=== PATIENT | female | born 1975 | race Asian ===

== ENCOUNTER 2018-09-05 11:35 | Emergency (ER) | payer BC ==
[~2018-09-05] VITALS: Ht 160 cm; Wt 52.2 kg
--- NOTE | 2018-09-05 12:17 | NUR ---
ZIGZAG APPLIQUER AND ELECTRODYNAMICIST AT BEDSIDE
--- NOTE | 2018-09-05 12:17 | NUR ---
VAGINAL SPOTTING, LOWER ABDOMINAL CRAMPING SINCE LATE LAST NIGHT. MISCARRIAGE AT 6 WEEKS, SEEN AT [facility] LAST FRIDAY. THIS WEEK WOULD HAVE BEEN WEEK 8. PT IS AOX4, AMBULATORY, RR EVEN AND UNLABORED, VSS. DENIES PAIN, SOB, DIZZINESS, WEAKNESS. NO ACUTE DISTRESS. CHANGED TO GOWN. READY FOR EVAL. Addendum: 09/05/18 at 1239 by MANUELAUWONO PT IS
[2018-09-05 12:31] LABS: BASOPHILS # (AUTO) 0.1 /CMM (0.0-0.2); BASOPHILS % (AUTO) 0.7 % (0.0-2.0); EOSINOPHILS % (AUTO) 1.5 % (0.0-6.0); HEMATOCRIT 41 % (33-45); HEMOGLOBIN 13.9 g/dL (11.5-14.8); LYMPHOCYTES # (AUTO) 1.5 /CMM (0.8-4.8); MEAN CORPUSCULAR HGB CONC 34 g/dl (31.0-36.0); MEAN CORPUSCULAR VOLUME 93 fL (82-100); MONOCYTES # (AUTO) 0.4 /CMM (0.1-1.30); MONOCYTES % (AUTO) 5.9 % (2.0-12.0); NEUTROPHILS # (AUTO) 5.1 /CMM (1.8-8.9); NEUTROPHILS % (AUTO) 70.9 % (43.0-81.0); PLATELET COUNT (AUTO) 295 /CMM (150-450); RED BLOOD CELL COUNT(AUTO) 4.37 MIL/uL (4.0-5.2); WHITE BLOOD COUNT (AUTO) 7.1 K/uL (4.3-11.0)
[2018-09-05 12:44] LABS: CALCIUM, SERUM 9.1 mg/dL (8.5-10.1); CREATININE 0.6 mg/dL (0.6-1.3); POTASSIUM 4.4 mmol/L (3.5-5.1)
[2018-09-05 13:02] LABS: APPEARANCE,URINE Clear (CLEAR); BILIRUBIN,URINE Negative (NEGATIVE); BLOOD, URINE Trace-intact Ery/uL (NEGATIVE); COLOR,URINE Yellow (YELLOW); KETONES,URINE 15 (NEGATIVE); LEUKOCYTE ESTERASE ,URINE Negative (NEGATIVE); NITRITE, URINE Negative (NEGATIVE); PROTEIN,URINE Negative (NEGATIVE); UGLUCOSE Negative (NEGATIVE); UROBILINOGEN,URINE 0.2 EU/dL (0.2)
[2018-09-05 13:09] LABS: BACTERIA,URINE Rare /HPF (None Seen); SQUAMOUS EPITHELIAL CELL,UR Few /HPF (None Seen); WBC,URINE NONE SEEN /HPF (0-3)
--- NOTE | 2018-09-05 13:38 | NUR ---
PT RESTING COMFORTABLY IN BED. NO COMPLAINTS AT THIS TIME. VSS.
--- NOTE | 2018-09-05 14:27 | NUR ---
WAITING FOR RHOGAM FROM LAB. PT NOTIFIED.
--- NOTE | 2018-09-05 15:15 | NUR ---
RHOGAM ADMINISTERED IM RIGHT DELTOID. PT TOLERATED WELL. Patient discharged to home in stable condition. Written and verbal after care instructions given. Patient verbalizes understanding of instruction.
[2018-09-05 15:28] VITALS: BP 138/72
== END 2018-09-05 15:15 | disposition home or self-care (01) ==
LOC: ER 11:38
DX: O03.9 Complete or unspecified spontaneous abortion without complication (principal); O36.4XX0 Maternal care for intrauterine death, not applicable or unspecified
CPT/HCPCS: 36415; 76805; 80048; 81001; 84702; 85025; 96372; 99284; A4606; J2790; Z7610; 81000-TC; P9016-BL

== ENCOUNTER 2021-07-29 13:42 | Emergency (ER) | payer BC ==
[~2021-07-29] VITALS: Ht 160 cm; Wt 53.5 kg
--- NOTE | 2021-07-29 14:28 | NUR ---
DR MARIA TALKING TO THE PATIENT
[2021-07-29 14:38] VITALS: BP 116/65
[2021-07-29] MEDS ORDERED: ACET-2605 PO (14:48)
--- NOTE | 2021-07-29 14:57 | NUR ---
Patient discharged to home in stable condition. Written and verbal after care instructions given. Patient verbalizes understanding of instruction.
== END 2021-07-29 14:57 | disposition home or self-care (01) ==
LOC: ER 13:47
DX: S00.11XA Contusion of right eyelid and periocular area, initial encounter (principal); S00.83XA Contusion of other part of head, initial encounter; H11.31 Conjunctival hemorrhage, right eye; W50.0XXA Accidental hit or strike by another person, initial encounter; Y93.89 Activity, other specified; Y92.89 Other specified places as the place of occurrence of the external cause; Y99.8 Other external cause status